=== PATIENT | male | born 1950 | race American Indian/Alaskan Native ===

== ENCOUNTER 2017-01-24 08:50 | Outpatient (CLI) | payer BC ==
--- NOTE | 2017-01-24 10:38 | Fluoroscopy Report ---
UPPER GI AIR CONTRAST: History: Dysphagia. FINDINGS: The patient ingested barium without difficulty. The esophageal contour is normal. There are no ulcerations or filling defects seen in the esophagus. There is normal esophageal motility. There is no hiatal hernia or reflux. The gastric contour and position appear normal. There are no ulcerations or filling defects in the stomach. The duodenal bulb and duodenal sweep appear normal. IMPRESSION: Negative double contrast upper GI examination.
== END 2017-01-24 08:51 | disposition home or self-care (01) ==
LOC: FLUORO 08:50
PROVIDERS: ATTEND Internal Medicine
DX: R13.10 Dysphagia, unspecified (principal)
CPT/HCPCS: 74246